=== PATIENT | male | born 1960 | race Caucasian/White ===

== ENCOUNTER 2019-04-21 10:07 | Inpatient (IN) ==
--- NOTE | 2019-04-17 13:04 | PAT Medication Instructions ---
Medication Instructions Date of Service April 17, 2019 Home Medications alfuzosin 10 mg PO QPM allopurinol 300 mg PO QAM atorvastatin 10 mg PO PM carvedilol 12.5 mg PO BID famotidine 20 mg PO HS PRN [id number] [krill oil] 1 cap PO QAM meloxicam 15 mg PO QAM phendimetrazine tartrate 35 mg PO BIDM topiramate 100 mg PO HS ASK your surgeon for instructions meloxicam 15 mg PO QAM STOP taking 2 weeks before surgery [id number] [krill oil] 1 cap PO QAM STOP taking 5 days before surgery phendimetrazine tartrate Take morning of surgery With a small sip of water, OTHERWISE NOTHING TO EAT OR DRINK AFTER MIDNIGHT: allopurinol 300 mg PO QAM carvedilol 12.5 mg PO BID Take evening before surgery alfuzosin 10 mg PO QPM atorvastatin 10 mg PO PM carvedilol 12.5 mg PO BID famotidine 20 mg PO HS PRN topiramate 100 mg PO HS Other Notes If you have any questions please call us at [phone] or [phone] or [phone] or [phone]
--- NOTE | 2019-04-17 14:04 | Anesthesiology Consultation ---
Date of Service April 17, 2019 Assessment & Plan (1) Encounter for pre-operative examination: PCP clearance 04/18/2019: "All the above medical diagnoses were evaluated and are discussed with patient. They are stable and doing as well as can be expected therefore all medical regimens are kept the same... The patient is cleared for planned Ortho surgery next week." Chart Review Chart Review: Acceptable Risk for Surgery and Patient seen in Pre Admission Testing Teaching & Discussion Instructed NPO after midnight before surgery, except medications with 15 cc of water. Medication instructions provided according to the PAT guidelines. History Surgery Operation Date: 04/21/19 13:20 Proposed Procedures p Left Total Knee Arthroplasty - Jhon Fletcher DO Height/Weight Height: 5 ft 9 in Weight: 92.3 kg Allergies Allergy/AdvReac Type Severity Reaction Status Date / Time Quinolones AdvReac Intermediate MUSCLE Verified 04/08/19 15:15 WEAKNESS/PAIN shellfish derived AdvReac Intermediate N/V Verified 04/08/19 14:43 Sulfa (Sulfonamide AdvReac Intermediate MUSCLE Verified 04/08/19 15:15 Antibiotics) PAIN/WEAKNESS Medications Home Medications Medication Instructions Recorded Confirmed Last Taken alfuzosin 10 mg PO QPM 04/08/19 04/08/19 Unknown allopurinol 300 mg PO QAM 04/08/19 04/08/19 Unknown atorvastatin 10 mg PO PM 04/08/19 04/08/19 Unknown carvedilol 12.5 mg PO BID 04/08/19 04/08/19 Unknown famotidine 20 mg PO HS PRN 04/08/19 04/08/19 Unknown [id number]-[id number]-[id number] 1 cap PO QAM 04/08/19 04/08/19 Unknown [krill oil] meloxicam 15 mg PO QAM 04/08/19 04/08/19 Unknown phendimetrazine tartrate 35 mg PO BIDM 04/08/19 04/08/19 Unknown topiramate 100 mg PO HS 04/08/19 04/08/19 Unknown Past Medical History Medical History BPH (benign prostatic hyperplasia) Diverticular disease s/p hemicolectomy 2016 Gout History of herniated intervertebral disc LUMBAR, WITH PAIN MANAGEMENT ~10 YEARS AGO. NO PROBLEMS SINCE. Hypertension Osteoarthritis Sleep apnea (MILD) CPAP Exercise / Class Metabolic Activity II 4-5 Yardwork/Stairs/Walk up hill (Pt active at home, no CP or SOB with 1 FOS, does daily) Past Family History Family History Brother FHx: lymphoma Father Family hx of colon cancer Family history of diabetes mellitus Mother FHx: stroke Past Surgical History Surgical History History of bowel resection PARTIAL. JULY 2016, FOR DIVERTICULITIS. History of colonoscopy S/P right knee arthroscopy X2 Past Anesthesia History No Hx of Anesthesia Complications and No Family Hx of Anesthesia Complications History of PONV No Hx of PONV and No Hx of Motion Sickness Social History Smoking Status: Former smoker tobacco type: cigarettes Smoking cigarettes per day: 1 PPD X 35 YEARS Do You Dip or Chew Tobacco: No Smoking End Date: ~2015 Hx Alcohol Use: Yes Alcohol type: beer alcohol intake frequency: a few times a week Hx Substance Use: No substance use type: does not use Review of Systems Pt denies any recent chest pain, shortness of breath, palpitations, cough, fever or URI. Physical Exam Vital Signs BP: 128/79 P: 57bpm SPO2: 99% RA T: 98.2 F R: 16 ENMT Mouth: no dental restorations, no chipped teeth and no loose teeth Thyromental Distance: < 3.5 Finger Breadths (3) Mallampati Class: I Neck normal visual inspection; neck extension not limited Respiratory normal respiratory effort Auscultation: lungs clear to auscultation bilaterally Cardiovascular Rate/Rhythm: regular rate and regular rhythm Heart Sounds: no murmur Vessels: no carotid bruit Extremities: no edema Testing Laboratory Results 04/17/19 14:12 04/17/19 14:12 PT 10.5 Seconds (9.0-12.0) 04/17/19 14:12 INR 1.0 (0.9-1.1) 04/17/19 14:12 APTT 27.1 Seconds (21.0-31.0) 04/17/19 14:12 Hemoglobin A1c 5.2 % (4.5-5.6) 04/17/19 14:12 Urine Color Yellow 04/17/19 Unknown Urine Appearance Clear (Clear) 04/17/19 Unknown Urine pH 5.5 (4.5-7.5) 04/17/19 Unknown Ur Specific [place] 1.011 (1.000-1.030) 04/17/19 Unknown Urine Protein Negative (Negative) 04/17/19 Unknown Urine Glucose (UA) Negative (Negative) 04/17/19 Unknown Urine Ketones Negative (Negative) 04/17/19 Unknown Urine Nitrite Negative (Negative) 04/17/19 Unknown Ur Leukocyte Esterase Negative (Negative) 04/17/19 Unknown Urine WBC (Auto) 0 /hpf (0-5) 04/17/19 Unknown Urine RBC (Auto) 5-10 /hpf (0-4) H 04/17/19 Unknown U Hyaline Cast (Auto) 0 /lpf (0-5) 04/17/19 Unknown U Epithel Cells (Auto) 0-5 /lpf (0-5) 04/17/19 Unknown Urine Bacteria (Auto) Negative (Negative) 04/17/19 Unknown Blood Type A Positive 04/17/19 14:12 Antibody Screen NEGATIVE 04/17/19 14:12 04/17/19 Unknown Urine Culture - Preliminary Urine,Clean Catch No growth - Less than 1,000 colonies/mL, Final report to follow.
--- NOTE | 2019-04-17 14:44 | XRay Report ---
XR chest Pre-admission PA/Lat HISTORY: 58 years-old Male pat preoperative exam. No acute chest complaints COMPARISON: None available TECHNIQUE: PA and lateral views of the chest FINDINGS: Cardiomediastinal and hilar silhouettes are within normal limits. No pneumothorax, pleural effusion, focal airspace consolidation or overt pulmonary edema. Remote fracture about the posterior left ninth rib. Changes of the spine are noted. IMPRESSION: No acute process. The above report was generated using voice recognition software. It may contain grammatical, syntax o r spelling errors. Electronically signed by: Gianluca Young M.D. 04/17/2019 2:43 PM
[2019-04-17 15:39] LABS: Basophils # (auto) 0.03 K/uL (0-0.2); Basophils % (auto) 0.6 %; Eosinophils # (auto) 0.17 K/uL (0-0.5); Eosinophils % (auto) 3.5 %; Hematocrit (blood only) 40.4 % (42-52); Hemoglobin 14.1 g/dL (14.0-18.0); Immature Granulocytes # (auto) 0.01 K/uL (0.00-0.02); Immature Granulocytes % (auto) 0.2 %; Lymphocytes # (auto) 1.06 K/uL (1.2-3.4); Lymphocytes % (auto) 22.1 %; Mean Corpuscular Hgb Conc 34.9 g/dL (32-36); Mean Corpuscular Volume 91.8 fL (80-100); Mean Platelet Volume 8.9 fL (7.4-10.4); Monocytes # (auto) 0.43 K/uL (0.11-0.59); Neutrophils % (auto) 64.6 %; Platelet Count 124 K/uL (130-400); RDW Coefficient of Variation 13.6 % (11.5-14.5)
[2019-04-17 15:47] LABS: Appearance Urine Clear (Clear); Bacteria Urine Automated Negative (Negative); Bilirubin Urine Negative (Negative); Blood Urine 2+ (Negative); Cast Urine Automated 0 /lpf (0-5); Color Urine Yellow; Epithelial Cell Urine Auto 0-5 /lpf (0-5); Glucose Urine UA Negative (Negative); Ketones Urine Negative (Negative); Leukocyte Esterase Urine Negative (Negative); Nitrite Urine Negative (Negative); Protein Urine Negative (Negative); Specific Gravity Urine 1.011 (1.000-1.030); Urobilinogen Urine Negative (Negative); WBC Urine Automated 0 /hpf (0-5); pH Urine 5.5 (4.5-7.5)
[2019-04-17 15:49] LABS: Albumin Level 3.9 gm/dl (3.4-5.0); BUN Creatinine Ratio 20.9 (10-20); Creatinine Clr Calc Pharmacy 111.6 ml/min; Est GFR (African American) 113.5; Potassium 4.5 mmol/L (3.5-5.1)
[2019-04-17 15:59] LABS: Partial Thromboplastin Time 27.1 Seconds (21.0-31.0); Prothrombin Time 10.5 Seconds (9.0-12.0)
[2019-04-18 05:48] LABS: Estimated Average Glucose 103 mg/dl; Hemoglobin A1C 5.2 % (4.5-5.6)
--- NOTE | 2019-04-20 19:34 | History & Physical Report ---
Date of Service April 20, 2019 Assessment & Plan (1) Degenerative joint disease of left knee: I have indicated the patient for left total knee replacement. The risks, benefits and complications of surgery were explained to the patient which include but not limited to infection, acute blood loss, DVT/PE, injury to nerves, vessels, bone, soft tissue, arthrofibrosis, chronic pain, failure of the prosthesis, knee dislocation, leg length discrepancy, need for additional surgery, cardiac and pulmonary events and . The patient wished to proceed with surgery and informed consent was obtained at this time. We will plan for ASA BID post-operatively for DVT prophylaxis. Upon discharge the patient will be discharged home with home health services. Appropriate clearances by PCP were obtained. History of Present Illness Chief Complaint: Left knee pain/djd Primary Care Provider: NO PCP The patient is a 58 year old male who presents with complaints of severe left knee pain and DJD. The patient has failed outpatient conservative treatments to this point which included NSAIDs, IA corticosteroid inj, JUAREZ inj, bracing, home exercise, walking program. The patient's pain and limited function have progressed to the point where they severely hinder their activities of daily living and they no longer tolerate exercise programs. They are requesting to proceed with total knee replacement surgery. Allergies Allergy/AdvReac Type Severity Reaction Status Date / Time Quinolones AdvReac Intermediate MUSCLE Verified 04/21/19 10:47 WEAKNESS/PAIN shellfish derived AdvReac Intermediate N/V Verified 04/21/19 10:47 Sulfa (Sulfonamide AdvReac Intermediate MUSCLE Verified 04/21/19 10:47 Antibiotics) PAIN/WEAKNESS Home Medications Home Medications Medication Instructions Recorded Confirmed Type alfuzosin 10 mg PO QPM 04/08/19 04/08/19 History allopurinol 300 mg PO QAM 04/08/19 04/08/19 History atorvastatin 10 mg PO PM 04/08/19 04/08/19 History carvedilol 12.5 mg PO BID 04/08/19 04/08/19 History famotidine 20 mg PO HS PRN 04/08/19 04/08/19 History liqpr-rdlyu-9-nrt-zbg-zaxior 1 cap PO QAM 04/08/19 04/08/19 History [krill oil] meloxicam 15 mg PO QAM 04/08/19 04/08/19 History phendimetrazine tartrate 35 mg PO BIDM 04/08/19 04/08/19 History topiramate 100 mg PO HS 04/08/19 04/08/19 History Past Med/Surg History Medical History BPH (benign prostatic hyperplasia) Diverticular disease s/p hemicolectomy 2015 Gout History of herniated intervertebral disc LUMBAR, WITH PAIN MANAGEMENT ~10 YEARS AGO. NO PROBLEMS SINCE. Hypertension Osteoarthritis Sleep apnea (MILD) CPAP Surgical History History of bowel resection PARTIAL. JULY 2016, FOR DIVERTICULITIS. History of colonoscopy S/P right knee arthroscopy X2 Family History Brother FHx: lymphoma Father Family hx of colon cancer Family history of diabetes mellitus Mother FHx: stroke Social History Preferred Language: Syrian Communication Ability: Effective Enlisted Aircrew/Aerial Observer/Gunner Required: No Beliefs That Will Affect Care: None Current Living Situation: Spouse and Family Other Information That Helps Us Care for You: No Feels Safe at Home: Yes Safety Concerns: Feels Safe At This Time Smoking Status: Former smoker Tobacco Type: cigarettes ; Cigarettes Per Day: 1 PPD X 35 YEARS ; Do You Dip or Chew Tobacco: No ; Smoking End Date: ~2015 ; Second Hand Exposure: No ; Tobacco Cessation Education Requested by Patient: No Hx Alcohol Use: Yes Alcohol type: beer Hx Substance Use: No Review of Systems Review of Systems: All systems reviewed & are unremarkable except as noted in HPI & below Constitutional: as per Subjective / HPI Physical Exam Physical Exam: LLE NVSI +EHL/FHL/TA/GS SILT grossly, +2 DP pulse, compartments soft NT, limited painful ROM, 0-120 degrees of flexion, +crepitus. Constitutional: WD/WN, vitals as above Eyes: PERRL, conjunctivae normal, anicteric sclerae ENMT: external ear and nose normal, oropharynx normal Neck: trachea midline, no thyromegaly Respiratory: normal respiratory effort, lungs clear to auscultation Cardiovascular: RRR, no murmur, no edema Gastrointestinal (Abdomen): normal bowel sounds, soft, nontender, no hepatosplenomegaly Skin: no rashes, warm and dry Neurologic: patellar DTR's 2+ bilat, sensation intact Psychiatric: A+Ox3, euthymic affect Lymphatic: no cervical or axillary lymphadenopathy Results & Data Diagnostic Findings Multiple views of the knee demonstrates severe tricompartmental DJD with complete loss of the medial and patellofemoral joint space. +osteophytes, +sclerosis, +subchondral cysts.
[~2019-04-21 10:07] MED LIST: ACETAMINOPHEN 500 MG TAB PO SCH; BUPIVACAINE 0.5 % 5 MG/1 ML PF 10ML VIAL ONE; CEFAZOLIN 2000MG 2,000 MG/15 ML SYR IV SCH; CeleBREX 200 MG CAP PO SCH; EPINEPHrine INJ 1 MG/ML AMP ONE; FAMOTIDINE 20 MG TAB PO SCH; LR 500ML BOLUS, THEN 15ML/HR IV SCH; METOCLOPRAMIDE HCL 10 MG TABLET PO SCH; ROPIVACAINE 0.5% 5 MG/ML 30 ML VIAL ONE; ROPIVACAINE 0.5% HCL/PF 150 MG, BUPIVACAINE 0.5% MPF 30 ML, EPINEPHrine 30MG/30ML (OR U... INSTIL SCH; TRANEXAMIC ACID 1,000 MG **IV Intra-op IV SCH; TRANEXAMIC ACID 1,000 MG **IV Pre-op IV SCH; dexAMETHasone 4 MG TAB PO SCH
[2019-04-21] MEDS ORDERED: LIDOCAINE HCL 2% 2 ML VIAL/AMP(20MG/ML) INFIL ONE ×2 (10:10)
[2019-04-21] MEDS ORDERED: ONDANSETRON INJ 2 MG/ML 2 ML VIAL ONE (10:10)
[2019-04-21] MEDS ORDERED: PROPOFOL IV EMULSION 10 MG/ML 20 ML VIAL IV ONE ×4 (10:10→14:11)
[2019-04-21] MEDS ORDERED: MIDAZOLAM HCL 1 MG/ML 2ML VIAL ONE (10:11)
[2019-04-21] MEDS ORDERED: fentaNYL citrate 100 MCG/2 ML VIAL ONE (10:11)
--- NOTE | 2019-04-21 10:51 | History & Physical Bridge Note ---
Date of Service April 21, 2019 History & Physical Bridge Note I have examined the patient, reviewed the History & Physical and in the interval since the performance of the History & Physical I have noted the following changes of clinical significance: no changes noted
[2019-04-21] MEDS ORDERED: ORTHO JOINT ANESTHETIC ONE (11:19)
[2019-04-21] MEDS ORDERED: BACITRACIN INJ 50,000 UNIT VIAL ONE (11:20)
[2019-04-21] MEDS ORDERED: GLYCOPYRROLATE 0.2 MG/ML VIAL ONE (12:41)
[2019-04-21] MEDS ORDERED: ePHEDrine sulfate 50 MG/ML AMP ONE (12:43)
[2019-04-21] MEDS ORDERED: ATROPINE SO4 1 MG/ML 1ML VIAL ONE (12:48)
--- NOTE | 2019-04-21 14:17 | Post Operative Brief Note ---
Immediate Post Op Note v1 Date of Surgery April 21, 2019 Pre & Post Diagnosis Operation Date: 04/21/19 13:20 Pre-Op Diagnosis: Left Knee Degenerative Joint Disease Post-Op Diagnosis: Left Knee Degenerative Joint Disease Procedure Operation Date: 04/21/19 13:20 Actual Procedures p Left Total Knee Arthroplasty(Left) - Jhon Fletcher DO Surgeon Jhon Fletcher DO Instructional Technology Director Valeriy Cotton Estimated Blood Loss 70 Findings Consistent with Post-Op Diagnosis Fluids 1400 cc LR Specimens proximal tibia and distal femur bone fragments Anesthesia Type Spinal MAC Complications none Disposition Disposition: Recovery Room Overlapping Procedure I was present for: the critical portions of procedure. I was immediately available: during the entire case. Back up surgeon: was not required during procedure.
--- NOTE | 2019-04-21 14:27 | Operative Report ---
Post Operative Report Pre & Post Diagnosis Operation Date: 04/21/19 13:20 Pre-Op Diagnosis: Left Knee Degenerative Joint Disease Post-Op Diagnosis: Left Knee Degenerative Joint Disease Procedure Operation Date: 04/21/19 13:20 Actual Procedures p Left Total Knee Arthroplasty(Left) - Jhon Fletcher DO Surgeon Jhon Fletcher DO Sanitary [place] Machine Tender Valeriy Cotton Estimated Blood Loss 70 Findings Consistent with Post-Op Diagnosis Fluids 1400 cc LR Specimens Proximal tibia and distal femur bone fragments Anesthesia Type Spinal MAC Complications none Disposition Disposition: Recovery Room Indications The patient is a 58-year-old male presents with long history of severe left knee tricompartmental DJD and failed outpatient conservative treatments including NSAIDs, bracing, injections and home walking/exercise program. The patient's symptoms have progressed to the point where it has been difficult to perform normal activities of daily living. I have indicated the patient for a left total knee arthroplasty, the risks and benefits and complications of the procedure include but are not limited to infection bleeding damage to bone, nerves, vessels, surrounding soft tissue, blood clots, loss of function, leg length discrepancy, dislocation, failure of the components, need for additional surgery and . The patient wished to proceed with surgery at this time and informed consent was obtained. Appropriate clearances were obtained. Description of Procedure COMPONENTS USED: Criselda persona knee system: Femur size 9, Tibia size F tibial articulating surface 12 CPS, Patella 31 mm Following induction of spinal anesthesia, a tourniquet was applied to the proximal aspect of the thigh and the patient's left leg was prepped and draped in the usual sterile manner. A timeout was performed, patient identified and site shirley confirmed. Appropriate pre-operative IV antibiotics were given. The limb was exsanguinated with an Esmarch bandage and tourniquet was inflated to 300 mmHg. A longitudinal midline incision was made over the anterior knee. Subcutaneous tissue was sharply dissected down to fascia. Electrocautery was used for hemostasis. Next a parapatellar arthrotomy was performed. Patella was everted and the knee was flexed. A Naranjo retractor was used to expose the synovium above on the anterior aspect of the femur and removed down to bone. Next, the anterior fat pad was removed to aid in visualization. The medial face of the tibia was cleared of soft tissue first with a Bovie and a perera elevator. This tissue was retracted posteriorly using a blunt Hohmann. Next, the extra-medullary tibial cutting guide was placed to the anterior aspect of the tibia. The tibia resection level was set taking 2mm from the defective tibial condyle. Resection depth was once again confirmed with hortensia wing. The medial and lateral collateral ligament was protected with two Hohmann retractors. The tibia guide was removed and proximal tibial bone fragment removed utilizing straight osteotome, electrocautery and Janie. Next, the distal femur intramedullary canal was accessed utilizing the step drill. The intramedullary distal femur cutting guide was placed into the canal and pinned into place. The distal femur was cut on the +0 5 degree setting. Next the cutting guide was removed and the femur was sized. Care was taken to ensure appropriate core driller helper all rotation and 3 degree holes were drilled. A size 9 4-in-1 cutting block was placed on the distal end of the femur and secured into place with two short headed screws. Two bent Hohmann retractors were placed to protect the medial and lateral collateral ligaments. The oscillating saw was used to cut anterior, posterior, anterior chamfer and posterior chamfer. The four and one cutting block was removed and bone fragments excised. Laminar unit nurse was placed laterally and the ACL and PCL were removed followed by the medial meniscus and posterior medial osteophytes. Aquamantys was utilized for any posterior medial bleeders and Orthomix injected into the posterior medial capsule. A laminar unit nurse was then placed in the medial compartment and the lateral meniscus and posterior osteophytes were removed. Aquamantys was utilized for any posterior lateral bleeders and Orthomix injected into the posterior lateral capsule. Next, drop mary and spacer block were placed with the leg in flexion and extension to assess alignment and flexion/extension gaps. Next, the proximal tibia was assessed and two bent Hohmans were placed medial and lateral to aid in visualization. The appropriate tibia size and rotation was selected and a size F tibial plate was pinned into place with appropriate rotation. Preparation of the tibia was completed utilizing the matching tibial drill and broach. I then turned my attention back to the distal femur in a trial femoral component was impacted into place. Appropriate femoral width was assessed and selected. Next the femur PS box cut guide was placed and cut made with the reciprocal saw and the PS box provisional placed. A trial size 10 PS tibia articular tray was placed and varus-valgus balance assessed in 0 degrees of extension and 30, 60 and 90 degrees of flexion. A final tibial articular surface size 12 CPS was chosen. Assess was gained to the patella and caliper utilized to measure width. The patella reamer was utilized and remaining bone removed with oscillating saw. A size 31 mm oval patella button was selected and the patella pegs drilled. Trial patella button was placed and tracking was assessed. The knee was found to be well balanced, well aligned with excellent patella tracking. The trials were removed and final components were obtained and assembled. The knee was irrigated copiously with sterile saline solution mixed with bacitracin. Access to the proximal tibia was once again obtained utilizing to the Hohmans and the proximal tibia and distal femur were dried with lap sponges. The final components were cemented into place and all excess cement was removed. A trial tibial articular surface was placed while cemented hardened. Knee stability was once again assessed and the final component inserted. A Betadine soak was performed. After 3 minutes, the hip was once more irrigated with copious sterile saline solution with bacitracin. The knee was injected with the remaining Orthomix which includes a combination of Ropivicaine 0.5% 150mg, Bupivicaine 0.5%/Epinephrine 1:200,000 30ml, Toradol 30mg, Dexamethasone 4mg, Ketamine 10mg, Clonidine 100mcg and NSS 30ml solution. The capsulotomy was closed with #1 Vicryl followed by subcutaneous closure with 2-0 Vicryl suture and a 3-0 V-lock suture. Skin closure was performed using Prineo dressing followed by Cornel, 4 x 4s and sae wrap. Tourniquet was deflated at 108 minutes. The patient tolerated the procedure well and was taken to the PACU in stable condition. Due to the complex nature of the procedure, the entire surgery was performed with the operational assistance of Valeriy Cotton PA-C. The academic support assistant, under direct supervision, was involved in the actual performance of all aspects of the surgical procedure including patient positioning, hemostasis, tissue retraction, instrument management and wound closure. I attest to the content of the Intraoperative Record and any orders documented therein. Any exceptions are noted below.
[2019-04-21] MEDS ORDERED: ePHEDrine sulfate 50 MG/ML AMP IV PRN (15:04)
[2019-04-21] MEDS ORDERED: PROMETHAZINE HCL 12.5 MG in SODIUM CHLORIDE 0.9% 50 ML IV PRN (15:04)
[2019-04-21] MEDS ORDERED: NALOXONE HCL 0.4 MG/1 ML VIAL/CARP IV PRN ×2 (15:04→16:01)
[2019-04-21] MEDS ORDERED: ATROPINE SULFATE 0.1 MG/ML 10ML SYR IV PRN (15:04)
[2019-04-21] MEDS ORDERED: FLUMAZENIL 0.1 MG/1 ML 10 ML VIAL IV PRN (15:04)
[2019-04-21] MEDS ORDERED: ONDANSETRON INJ 2 MG/ML 2 ML VIAL IV PRN ×2 (15:04→16:01)
[2019-04-21] MEDS ORDERED: HYDROmorphone INJ 1 MG/ML SYRINGE IV PRN (15:04)
--- NOTE | 2019-04-21 15:12 | XRay Report ---
TWO VIEWS LEFT KNEE CLINICAL HISTORY: Postoperative examination. FINDINGS: AP and crosstable lateral portable views of the left knee are obtained. A left knee arthrop lasty is in near anatomic alignment. There has been undersurface remodeling of the patella. No acute fracture is seen. Subcutaneous gas and soft tissue edema are expected postoperative findings. There i s atherosclerotic calcification of the popliteal artery. IMPRESSION: Expected postoperative changes status post left knee arthroplasty. No acute fracture is s een. Electronically signed by: Barrera Jon M.D. 04/21/2019 3:11 PM
--- NOTE | 2019-04-21 15:25 | Anesthesiology Progress Note ---
Date of Service April 21, 2019 Anesthesia Post Procedure Vital Signs Vital Signs: Temp Pulse Pulse Resp BP Pulse Ox 04/21/19 15:15 36.4 C L 51 L 16 134/67 96 04/21/19 15:05 51 L 16 135/71 96 04/21/19 14:55 52 L 16 116/70 100 04/21/19 14:49 36.5 C 54 L 16 120/73 100 04/21/19 10:59 37.2 C 54 L 18 140/76 97 Transfer of Care Handoff Completed per policy Notes Mental Status: alert / awake / arousable Patient Amnestic to Procedure: Yes Nausea / Vomiting: adequately controlled Pain: adequately controlled Airway Patency, RR, SpO2: stable & adequate BP & HR: stable & adequate Hydration State: stable & adequate Neuraxial Anesthesia: was administered and sensory block is resolving Anesthetic Complications: no major complications apparent
[2019-04-21] MEDS ORDERED: MAGNESIUM HYDROXIDE SUSP 30 ML UDC PO PRN (16:01)
[2019-04-21] MEDS ORDERED: BISACODYL 10 MG SUPP PR PRN (16:01)
[2019-04-21] MEDS ORDERED: METOCLOPRAMIDE HCL INJ 5 MG/ML 2 ML VIAL IV PRN (16:01)
[2019-04-21] MEDS ORDERED: HYDROmorphone INJ 0.5 MG/0.5 ML SYR IV PRN (16:01)
[2019-04-21] MEDS ORDERED: FAMOTIDINE 20 MG TAB PO PRN (16:01)
--- NOTE | 2019-04-21 17:04 | Orthopedic Progress Note ---
Date of Service April 21, 2019 Assessment & Plan (1) Degenerative joint disease of left knee: s/p L TKA -ancef x 24 -DVT ppx: SCDs, TEDs, ASA BID -WBAT LLE -PT/OT -PO XR demonstrates a well aligned well fixed orthopedic prothesis without fracture/dislocation -am labs -DC planning Subjective Post Operative Progress Note Patient seen in PACU, comfortable, denies complaints, pain well controlled, no acute issues. Still feeling effects of spinal anesthesia. Review of Systems Review of Systems: All systems reviewed & are unremarkable except as noted in HPI & below Constitutional: as per Subjective / HPI Physical Exam Physical Exam: LLE PE limited secondary to spinal anesthesia, +2 DP pulse, compartments soft NT, dressing CDI. Constitutional: WD/WN, vitals as above Results & Data Vital Signs (Past 12 Hours) Vital Signs Temp Pulse Pulse Pulse Resp BP Pulse Ox 04/21/19 16:47 36.3 C L 51 L 16 139/76 100 04/21/19 16:19 36.3 C L 49 L 17 127/78 97 04/21/19 15:35 36.4 C L 51 L 16 128/85 96 04/21/19 15:25 36.4 C L 51 L 16 132/70 95 04/21/19 15:15 36.4 C L 51 L 16 134/67 96 04/21/19 15:05 51 L 16 135/71 96 04/21/19 14:55 52 L 16 116/70 100 04/21/19 14:49 36.5 C 54 L 16 120/73 100 04/21/19 10:59 37.2 C 54 L 18 140/76 97
[2019-04-21] MEDS: SODIUM CHLORIDE 0.9% 1000ML 1,000 ML IV SCH (17:38)
[2019-04-21] MEDS: KETOROLAC TROMETHAMINE 15 MG/ML VIAL IV SCH ×2 (17:39→22:22)
[2019-04-21] MEDS: OXYCODONE HCL IR 5 MG TAB (IMMEDIATE RELEASE) PO PRN (18:53)
[2019-04-21] MEDS: CARVEDILOL 12.5 MG TAB PO SCH (20:11)
[2019-04-21] MEDS: DOCUSATE SODIUM 100 MG CAP PO SCH (20:11)
[2019-04-21] MEDS: ASPIRIN 325 MG ECTAB PO SCH (20:11)
[2019-04-21] MEDS: CEFAZOLIN 2000MG 2,000 MG/15 ML SYR IV SCH (20:47)
[2019-04-21] MEDS ORDERED: ALFUZOSIN HCL 10 MG TAB PO SCH (21:00)
[2019-04-21] MEDS ORDERED: ATORVASTATIN 10 MG TAB PO SCH (21:00)
[2019-04-21] MEDS ORDERED: TOPIRAMATE 50 MG TAB PO SCH (21:00)
[2019-04-21] MEDS ORDERED: CARVEDILOL 25 MG TAB PO SCH (21:00)
[2019-04-21] MEDS ORDERED: SENNA 8.6 MG TAB PO SCH (21:00)
[2019-04-21] MEDS: ACETAMINOPHEN 500 MG TAB PO SCH (21:08)
[2019-04-22] MEDS: OXYCODONE HCL IR 5 MG TAB (IMMEDIATE RELEASE) PO PRN ×3 (00:11→13:08)
[2019-04-22] MEDS: SODIUM CHLORIDE 0.9% 1000ML 1,000 ML IV SCH (02:24)
[2019-04-22] MEDS: CEFAZOLIN 2000MG 2,000 MG/15 ML SYR IV SCH (05:13)
[2019-04-22] MEDS: ACETAMINOPHEN 500 MG TAB PO SCH ×2 (05:14→13:08)
[2019-04-22] MEDS: KETOROLAC TROMETHAMINE 15 MG/ML VIAL IV SCH ×2 (05:14→10:00)
[2019-04-22 06:25] LABS: Hematocrit (blood only) 36.1 % (42-52); Hemoglobin 12.4 g/dL (14.0-18.0); Mean Corpuscular Hgb Conc 34.3 g/dL (32-36); Mean Corpuscular Volume 91.9 fL (80-100); Mean Platelet Volume 8.5 fL (7.4-10.4); Platelet Count 119 K/uL (130-400); RDW Coefficient of Variation 13.7 % (11.5-14.5); RDW Standard Deviation 45.9 fL (36.4-46.3); Red Blood Count 3.93 M/uL (4.7-6.1); White Blood Count 10.71 K/uL (4.8-10.8)
[2019-04-22 06:53] LABS: BUN Creatinine Ratio 19.2 (10-20); Calcium 8.5 mg/dl (8.5-10.1); Creatinine Clr Calc Pharmacy 93.2 ml/min; Est GFR (African American) 99.3; Est GFR (Non-African American) 85.7; Potassium 4.1 mmol/L (3.5-5.1)
--- NOTE | 2019-04-22 07:55 | Orthopedic Progress Note ---
Date of Service April 22, 2019 Assessment & Plan (1) Degenerative joint disease of left knee: s/p L TKA POD#1 -ancef x 24 -DVT ppx: SCDs, TEDs, ASA BID -WBAT LLE -PT/OT -PO XR demonstrates a well aligned well fixed orthopedic prothesis without fracture/dislocation -am labs - hgb 12.4 -DC planning home with HH Subjective Post Operative Progress Note Patient seen sitting up in bed, comfortable, denies complaints, pain well controlled, no acute issues. Review of Systems Review of Systems: All systems reviewed & are unremarkable except as noted in HPI & below Constitutional: as per Subjective / HPI Physical Exam Physical Exam: LLE NVSI +EHL/FHL/TA/GS SILT grossly, +2 DP pulse, compartments soft NT, dressing cdi. Constitutional: WD/WN, vitals as above Results & Data Vital Signs (Past 12 Hours) Vital Signs Temp Pulse Resp BP Pulse Ox 04/22/19 07:02 36.5 C 56 L 16 120/63 98 04/22/19 03:13 36.8 C 61 16 101/46 L 98 04/21/19 23:18 36.5 C 54 L 16 111/53 L 96 04/21/19 20:05 75 139/82
[2019-04-22] MEDS: ASPIRIN 325 MG ECTAB PO SCH (08:35)
[2019-04-22] MEDS: DOCUSATE SODIUM 100 MG CAP PO SCH (08:35)
[2019-04-22] MEDS: CARVEDILOL 12.5 MG TAB PO SCH (08:35)
[2019-04-22] MEDS ORDERED: MULTIVITAMIN TAB PO SCH (09:00)
[2019-04-22] MEDS ORDERED: ALLOPURINOL 300 MG TAB PO SCH (09:00)
[2019-04-22] MEDS ORDERED: Nursing to Pharmacy Communication ONE (09:57)
[2019-04-22] MEDS ORDERED: FAMOTIDINE 20 MG TAB PO SCH (10:30)
[2019-04-22] MEDS ORDERED: ALBUTEROL 0.5% NEB SOLN 2.5 MG/0.5 ML VIAL NEB ONE (14:41)
[2019-04-22 15:21] VITALS: BP 119/64; TEMP 97.5; O2SAT 94
[2019-04-22 15:52] VITALS: PULSE 54
[2019-04-22] MEDS ORDERED: CeleBREX 200 MG CAP PO SCH (21:00)
--- NOTE | 2019-04-22 21:43 | Discharge Summary ---
Date of Service April 22, 2019 Admission HPI Per Admitting Provider The patient is a 58 year old male who presents with complaints of severe left knee pain and DJD. The patient has failed outpatient conservative treatments to this point which included NSAIDs, IA corticosteroid inj, JUAREZ inj, bracing, home exercise, walking program. The patient's pain and limited function have progressed to the point where they severely hinder their activities of daily living and they no longer tolerate exercise programs. They are requesting to proceed with total knee replacement surgery. Principal Diagnosis Left total knee replacement Discharge Exam LLE NVSI +EHL/FHL/TA/GS SILT grossly, +2 DP pulse, compartments soft NT, dressing cdi. Constitutional WD/WN, vitals as above Discharge Data Allergies Allergy/AdvReac Type Severity Reaction Status Date / Time Quinolones AdvReac Intermediate MUSCLE Verified 04/21/19 10:47 WEAKNESS/PAIN shellfish derived AdvReac Intermediate N/V Verified 04/21/19 10:47 Sulfa (Sulfonamide AdvReac Intermediate MUSCLE Verified 04/21/19 10:47 Antibiotics) PAIN/WEAKNESS Consultations 04/21/19 16:01 Consult Case Management - Discharge Planning Routine Procedures Performed Operation Date: 04/21/19 13:20 Actual Procedures p Left Total Knee Arthroplasty(Left) - Jhon Fletcher DO Ordered Studies 04/21/19 05:00 US - OR guided needle placemen Routine Hospital Course (1) Degenerative joint disease of left knee: The patient is a 58 -year-old male who presents with long standing history of severe left knee DJD and failed outpatient conservative treatments including NSAIDs, bracing, injections and home walking/exercise program. The patient's symptoms have progressed to the point where it has been difficult to perform even normal activities of daily living. I indicated the patient for a left total knee arthroplasty, the risks, benefits and complications of the procedure include but not limited to infection, bleeding, damage to bone, nerves, vessels, surrounding soft tissue, may develop blood clots, loss of function, leg length discrepancy, dislocation, failure of the components, loosening of the components, the need for additional surgery and . The patient wished to proceed with surgery at this time and informed consent was obtained. Hospital Course: On 04/21/19 the patient was taken to the operating room, adequate anesthesia administered and underwent a left total knee arthroplasty. The patient tolerated the procedure well and was taken to the PACU in stable condition. Post-operatively the patient was started on a DVT ppx medication and given appropriate IV antibiotics. Consults were placed to physical therapy, occupational therapy and case management. On POD#1, the patient did well overnight and their pain was well controlled. Labs were drawn and the Hgb was 12.4. The patient progressed well with PT. Dressings were changed at this time and the incision was clean, dry and intact. The patients hospital stay was relatively uneventful and they were deemed stable by the orthopedic team and consultants to be discharged home with HH on 04/22/19. Discharge Instructions: Upon discharge the patient may weight bear as tolerates through their operative extremity. They were instructed to keep the incision clean and dry at all times. The patient may shower but should not submerge the incision, avoid bathing, pools and hot tubes. The patient was given a script for pain medication and should take as instructed. The patient was given a script for DVT ppx Aspirin 325mg BID and should take as directed. The patient was instructed to not drive or travel for long distances until cleared to do so. If the patient develops any symptoms of fevers, chills, nausea, vomiting, increased redness, swelling, pain or drainage from the surgical site, they should notify the office and/or proceed to the nearest emergency room. The patient should follow up in 10-14 days after surgery for their routine post-operative follow-up appointment and should call the office to confirm the date and time. s/p L TKA POD#1 -ancef x 24 -DVT ppx: SCDs, TEDs, ASA BID -WBAT LLE -PT/OT -PO XR demonstrates a well aligned well fixed orthopedic prothesis without fracture/dislocation -am labs - hgb 12.4 -DC planning home with HH Total Time Total Time Spent Total Time Spent (In Minutes): 30 minutes Total Time Includes: Examination of the Patient, Discharge Planning, Medication Reconciliation and Communication With Other Providers Discharge Plan Discharge Items Patient Disposition: Home - Home Health Services Reason For Visit: Unilateral Primary Osteoarthritis, Left Knee Discharge Diagnosis: Left total knee replacement Condition: Good Discharge Goals: Decrease discomfort, Improve function, Increase independence and Therapeutic intervention Activity: Per 'Additional Instructions' section Lifting: Wait until after follow-up appointment Bathing Comment: No bathing, pools or hot tubs Sexual Activity: Wait until after follow-up appointment Exercise/Sports: Wait until after follow-up appointment Driving/Machine Use Comment: No driving till cleared by your surgeon Weightbearing: Left weightbearing Non-emergency contact: Primary Care Provider and Surgeon Call non-emergency contact if: you have any medication questions, your symptoms worsen, your pain is not controlled, your pain is worsening, your pain is unusual for you, your pain is concerning for you, you have a fever, your temperature is above 101, your wound has increased redness, your wound has increased drainage and your wound pain has increased Follow-up/Referrals: Yogesh Parrish [Primary Care Provider] - Diet: Regular Addtl Provider Instructions: ACTIVITY RECOMMENDATIONS: SELF CARE INSTRUCTIONS AFTER TOTAL KNEE REPLACEMENT A. You may need to continue a physical therapy program after discharge from the hospital. There are several options available to you. Your doctor will assist you in selecting the best one for you. 1. An out-patient facility 2 to 3 times a week for therapy or home therapy. 2. Continue working on all exercises taught to you in the hospital. Your goals should be to increase bending of your knee to 90 degrees and beyond and to fully straighten your knee. B. You may progress at your own pace from walking with a walker or crutches to a cane; then to no assistive devices. C. Make walking a part of your daily routine. Be up as much as comfortable with rest periods throughout the day. Rest with leg elevation is very important. Use the ice wrap frequently for the first 3-4 weeks. D. There are no restrictions on activities. You may ride in a car, shop, participate in shipping support clerk and all social activities. E. Wear the long elastic stockings (DAVID hose) 20 hours a day for 2 weeks after surgery. They can be removed several times a day for laundering and for a bath. F. You may shower, no tub baths until cleared by your doctor. SPECIAL CARE INSTRUCTIONS: VERY IMPORTANT TO READ AND REVIEW A. There are a few signs you need to watch for after you are home. Call [facility] if you notice any of the followin. Increased severe knee pain. Some pain is expected especially when you exercise. 2. Increased swelling in your leg or knee; pain or swelling of the calf muscle in either lower leg. 3. Any fluid drainage from the incision. 4. Shortness of breath or chest pain. B. Please call [facility] at if you have any concerns or questions about your operation or recovery. The doctor or his nurse will return your call promptly. C. You must take antibiotics before dental work, bladder, bowel or other surgery. Your doctor will provide you with a permanent care to carry describing this precaution. IMPORTANT: * REMEMBER TO TAKE ASPIRIN, 325 MG, TWICE DAILY FOR 4 WEEKS UNLESS OTHERWISE DIRECTED. THIS IS YOUR BLOOD THINNER. * HIGH RISK PATIENTS MAY BE PRESCRIBED A STRONGER BLOOD THINNER. THIS WILL BE PROVIDED AT DISCHARGE. * CALL IF INCREASED PAIN, REDNESS, DRAINAGE OR FEVER GREATER THAT 101. * WEAR DAVID HOSE 20 HOURS PER DAY FOR 2 WEEKS. *DERMABOND Prineo- This is a mesh tape dressing that is covered with glue. It should remain in place until the incision is properly healed, usually 10-14 days. This dressing is designed to naturally slough off. You may trim the excess mesh tape as it peels off. Incision may be briefly wet in a shower. Dry immediately by blotting with a clean, dry towel. Do not bath or swim until instructed by your doctor. Do not scratch, rub, or pick at the dressing. Do not apply any topical ointments or lotions until dressing is completely removed and/or instructed by your doctor. There may be a small piece of suture material at one end of your incision. Do not pull or trim this. If it is bothersome or catching on clothing, you may cover it with a band-aid. IF INCISION IS LEAKING THROUGH DRESSING, CALL THE OFFICE . FOLLOW UP VISIT: If appointment is not already scheduled: Please call [facility] to make a follow-up appointment for 2 weeks after your surgery at . Prescriptions: New acetaminophen [Tylenol Extra Strength] 500 mg Tablet 1,000 mg PO Q8 PRN (Reason: fever or pain) Qty: 90 RF: 0 celecoxib [Celebrex] 200 mg Capsule 200 mg PO BID PRN (Reason: pain) Qty: 28 RF: 0 aspirin 325 mg Tablet,Delayed Release (Dr/Ec) 325 mg PO BID Qty: 56 RF: 0 oxycodone 5 mg Tablet 5 mg PO Q6H MDD 6 tabs PRN (Reason: pain) Qty: 30 RF: 0 sennosides [Senokot] 8.6 mg Tablet 17.2 mg PO HS PRN (Reason: constipation) Qty: 28 RF: 0 Continued carvedilol 25 mg Tablet 12.5 mg PO BID RF: 0 atorvastatin 10 mg Tablet 10 mg PO PM RF: 0 phendimetrazine tartrate 35 mg Tablet 35 mg PO BIDM RF: 0 famotidine 20 mg Tablet 20 mg PO HS PRN (Reason: Heartburn) RF: 0 allopurinol 300 mg Tablet 300 mg PO QAM RF: 0 alfuzosin 10 mg Tablet Extended Release 24 Hr 10 mg PO QPM RF: 0 topiramate 50 mg Tablet 100 mg PO HS RF: 0 [id number] [krill oil] [id number] mg Capsule 1 cap PO QAM RF: 0 Discontinued meloxicam 15 mg Tablet 15 mg PO QAM RF: 0 Stand-Alone Forms: [facility]/Other Patient Handouts: Pain Management, Replacement Knee Discharge Orders: Discharge Order (Routine); Ordered 04/22/19 Ordered By: Santos Campa Admission Data Admit Date/Time: 04/21/19 14:53 Attending Provider: Jhon Fletcher Admit Provider: Jhon Fletcher Primary Care Provider: Yogesh Parirsh Service: Surgical Services Other Interventions: Discharge Summary Assessment (RN) Last Done: 04/22/19 15:51 Pending Studies at Discharge: No DC Date/Time DO NOT enter until pt leaves facility: 04/22/19 16:31
== END 2019-04-22 16:31 | disposition home health service (06) | DRG 470 ==
LOC: ASU 10:07 → 3E 14:53

== ENCOUNTER 2020-04-06 08:32 | Inpatient (IN) ==
--- NOTE | 2020-03-09 12:51 | PAT Medication Instructions ---
Medication Instructions Date of Service March 09, 2020 Home Medications alfuzosin 10 mg PO QPM allopurinol 150 mg PO QAM atorvastatin 10 mg PO PM carvedilol 12.5 mg PO BID famotidine 20 mg PO HS PRN [id number] [krill oil] 1 cap PO QAM phendimetrazine tartrate 35 mg PO BIDM topiramate 100 mg PO HS folic acid 1 mg PO QPM meloxicam 15 mg PO QAM methotrexate sodium 2.5 mg PO UD prednisone 1 mg PO UD prednisone 5 mg PO UD ASK your surgeon for instructions meloxicam 15 mg PO QAM ASK your prescriber and surgeon methotrexate sodium 2.5 mg PO UD STOP taking 2 weeks before surgery [id number] [krill oil] 1 cap PO QAM STOP FIVE DAYS PRIOR TO SURGERY: phendimetrazine tartrate 35 mg PO BIDM Take morning of surgery With a small sip of water, OTHERWISE NOTHING TO EAT OR DRINK AFTER MIDNIGHT: allopurinol 150 mg PO QAM carvedilol 12.5 mg PO BID prednisone Take evening before surgery alfuzosin 10 mg PO QPM atorvastatin 10 mg PO PM carvedilol 12.5 mg PO BID famotidine 20 mg PO HS PRN (if needed) topiramate 100 mg PO HS folic acid 1 mg PO QPM Other Notes If you have any questions please call us at [phone] or [phone] or [phone] or [phone]
--- NOTE | 2020-03-10 14:28 | Anesthesiology Consultation ---
Date of Service March 10, 2020 Assessment & Plan (1) Encounter for pre-operative examination: Chart Review Chart Review: Pending: Refer to Additional Notes / Consult section (surgeon ordered PCP clearance ) and Patient seen in Pre Admission Testing Awaiting surgeon ordered PCP clearance 03/17/20 Per PAT appt 03/10/20, pt resides in [facility]. Traveled to [facility] for ortho appt. Wears mask in public. Educated patient to follow up with surgeon's office regarding Covid testing. Educated on importance of self quarantining, social distancing and wearing mask in public both for herself and household contacts. Teaching & Discussion Pre-Anesthesia Teaching/Discussion Notes: Instructed NPO after midnight before surgery,except medications with 15 cc of water. Medication instructions provide d according to the PAT guidelines. History Surgery Operation Date: 04/06/20 12:50 Proposed Procedures p Right Total Knee Arthroplasty - Jhon Fletcher DO Height/Weight Height: 5 ft 9 in Weight: 107.5 kg Allergies Allergy/AdvReac Type Severity Reaction Status Date / Time Quinolones AdvReac Intermediate MUSCLE Verified 03/08/20 15:21 WEAKNESS/PAIN shellfish derived AdvReac Intermediate N/V Verified 03/08/20 15:21 Sulfa (Sulfonamide AdvReac Intermediate MUSCLE Verified 03/08/20 15:21 Antibiotics) PAIN/WEAKNESS Medications Home Medications Medication Instructions Recorded Confirmed Last Taken alfuzosin 10 mg PO QPM 04/08/19 03/08/20 04/20/19 17:00 allopurinol 150 mg PO QAM 04/08/19 03/08/20 04/21/19 06:45 atorvastatin 10 mg PO PM 04/08/19 03/08/20 04/20/19 17:00 carvedilol 12.5 mg PO BID 04/08/19 03/08/20 04/21/19 06:45 famotidine 20 mg PO HS PRN 04/08/19 03/08/20 Unknown [id number] 1 cap PO QAM 04/08/19 03/08/20 Unknown [krill oil] phendimetrazine tartrate 35 mg PO BIDM 04/08/19 03/08/20 04/16/19 17:00 topiramate 100 mg PO HS 04/08/19 03/08/20 04/16/19 21:00 folic acid 1 mg PO QPM 03/08/20 03/08/20 Unknown meloxicam 15 mg PO QAM 03/08/20 03/08/20 Unknown methotrexate sodium 2.5 mg PO UD 03/08/20 03/08/20 Unknown prednisone 1 mg PO UD 03/08/20 03/08/20 Unknown prednisone 5 mg PO UD 03/08/20 03/08/20 Unknown Past Medical History Medical History BPH (benign prostatic hyperplasia) Diverticular disease s/p hemicolectomy 2016 Gout No recent flares History of herniated intervertebral disc LUMBAR, WITH PAIN MANAGEMENT ~10 YEARS AGO. NO PROBLEMS SINCE. Hypertension Osteoarthritis Rheumatoid arthritis Dr. Rainey Sleep apnea (MILD) CPAP Exercise / Class Metabolic Activity II 4-5 Yardwork/Stairs/Walk up hill (one fight of stairs-no chest pain or SOB) Past Family History Family History Brother FHx: lymphoma Father Family hx of colon cancer Family history of diabetes mellitus Mother FHx: stroke Past Surgical History Surgical History History of bowel resection PARTIAL. JULY 2016, FOR DIVERTICULITIS. History of colonoscopy History of tooth extraction History of total knee replacement LEFT S/P right knee arthroscopy X2 Past Anesthesia History No Hx of Anesthesia Complications and No Family Hx of Anesthesia Complications History of PONV No Hx of PONV and No Hx of Motion Sickness Social History Smoking Status: Former smoker tobacco type: cigarettes Do You Dip or Chew Tobacco: No Smoking End Date: 6 YEARS AGO Hx Alcohol Use: Yes Alcohol type: beer alcohol intake frequency: a few times a month Hx Substance Use: No substance use type: does not use Review of Systems Occ reflux- takes meds PRN- controlled Patient denies chest pain, shortness of breath, dyspnea on exertion, cough, wheezing, palpitations. No hx of seizures, stroke, NM. No hx of blood clots or blood transfusions Physical Exam Vital Signs VITALS BP 117/76 P 63 TEMP 98.6 SP02 97% RESP 16 Constitutional no acute distress ENMT Mouth: no TMJ clicking Thyromental Distance: > or= 3.5 Finger Breadths (3.5) Mallampati Class: II Missing molars Neck + short neck and + thick neck; neck extension not limited Respiratory normal respiratory effort; no respiratory distress Auscultation: lungs clear to auscultation bilaterally; no wheezes Cardiovascular Rate/Rhythm: regular rate and regular rhythm Heart Sounds: no murmur Vessels: no carotid bruit Musculoskeletal Spine: no pain with cervical ROM Neurologic moves all extremities Psychiatric Orientation: alert Testing Laboratory Results 03/10/20 14:19 03/10/20 14:19 PT 10.5 Seconds (9.0-12.0) 03/10/20 14:19 INR 1.0 (0.9-1.1) 03/10/20 14:19 APTT 27.3 Seconds (21.0-31.0) 03/10/20 14:19 Hemoglobin A1c 5.2 % (4.5-5.6) 03/10/20 14:19 Urine Color Yellow 03/10/20 14:19 Urine Appearance Clear (Clear) 03/10/20 14:19 Urine pH >= 9.0 (4.5-7.5) H 03/10/20 14:19 Ur Specific Hyndman 1.015 (1.000-1.030) 03/10/20 14:19 Urine Protein Negative (Negative) 03/10/20 14:19 Urine Glucose (UA) Negative (Negative) 03/10/20 14:19 Urine Ketones Negative (Negative) 03/10/20 14:19 Urine Nitrite Negative (Negative) 03/10/20 14:19 Ur Leukocyte Esterase Negative (Negative) 03/10/20 14:19 Urine WBC (Auto) 0 /hpf (0-5) 03/10/20 14:19 Urine RBC (Auto) 10-30 /hpf (0-4) H 03/10/20 14:19 U Hyaline Cast (Auto) 0 /lpf (0-5) 03/10/20 14:19 U Epithel Cells (Auto) 0-5 /lpf (0-5) 03/10/20 14:19 Urine Bacteria (Auto) Negative (Negative) 03/10/20 14:19 Blood Type A Positive 03/10/20 14:19 Antibody Screen NEGATIVE 03/10/20 14:19 Electrocardiogram Date: 04/17/19 Findings: + SB @ (55) Chest X-Ray Date: 04/17/19 Findings: + NAD Cervical Spine Date: 03/10/20 The cervical spine is visualized from C1 through the superior endplate of T1. There is no fracture. No evidence for positional subluxation with the patient in extension as well as flexion and neutral. Degenerative disc change most prominent from C3 through C5. Prevertebral soft tissues and the atlantodens interval are intact.
[2020-03-10 14:40] LABS: Basophils # (auto) 0.01 K/uL (0-0.2); Basophils % (auto) 0.1 %; Eosinophils # (auto) 0.04 K/uL (0-0.5); Eosinophils % (auto) 0.5 %; Hematocrit (blood only) 44.3 % (42-52); Hemoglobin 14.9 g/dL (14.0-18.0); Immature Granulocytes # (auto) 0.02 K/uL (0.00-0.02); Immature Granulocytes % (auto) 0.3 %; Lymphocytes # (auto) 0.68 K/uL (1.2-3.4); Lymphocytes % (auto) 8.6 %; Mean Corpuscular Hemoglobin 32.9 pg (25-34); Mean Corpuscular Hgb Conc 33.6 g/dL (32-36); Mean Corpuscular Volume 97.8 fL (80-100); Mean Platelet Volume 8.8 fL (7.4-10.4); Monocytes % (auto) 5.1 %; Neutrophils # (auto) 6.75 K/uL (1.4-6.5); Neutrophils % (auto) 85.4 %; Platelet Count 167 K/uL (130-400); RDW Coefficient of Variation 14.3 % (11.5-14.5); RDW Standard Deviation 51.2 fL (36.4-46.3); Red Blood Count 4.53 M/uL (4.7-6.1)
[2020-03-10 14:44] LABS: Estimated Average Glucose 103 mg/dl; Hemoglobin A1C 5.2 % (4.5-5.6)
[2020-03-10 14:57] LABS: Appearance Urine Clear (Clear); Bacteria Urine Automated Negative (Negative); Bilirubin Urine Negative (Negative); Blood Urine 2+ (Negative); Cast Urine Automated 0 /lpf (0-5); Color Urine Yellow; Epithelial Cell Urine Auto 0-5 /lpf (0-5); Glucose Urine UA Negative (Negative); Ketones Urine Negative (Negative); Leukocyte Esterase Urine Negative (Negative); Nitrite Urine Negative (Negative); Partial Thromboplastin Time 27.3 Seconds (21.0-31.0); Protein Urine Negative (Negative); Prothrombin Time 10.5 Seconds (9.0-12.0); Specific Gravity Urine 1.015 (1.000-1.030); Urobilinogen Urine Negative (Negative); WBC Urine Automated 0 /hpf (0-5); pH Urine >= 9.0 (4.5-7.5)
--- NOTE | 2020-03-10 15:15 | XRay Report ---
XR cervical spine 2 or 3V HISTORY: Preoperative preop- RA- lateral view- flex, ext and neutral pos COMPARISON: None. FINDINGS: The cervical spine is visualized from C1 through the superior endplate of T1. There is no f racture. No evidence for positional subluxation with the patient in extension as well as flexion and neutral. Degenerative disc change most prominent from C3 through C5. Prevertebral soft tissues and t he atlantodens interval are intact. IMPRESSION: No fracture or subluxation within the cervical spine. Moderate degenerative disc change. No evidence for positional subluxation. ACT 112: Negative or not required by law. The above report was generated using voice recognition software. It may contain grammatical, syntax or spelling errors. Electronically signed by: Santos Lopez M.D. 03/10/2020 3:13 PM
[2020-03-10 16:14] LABS: Albumin Level 3.8 gm/dl (3.4-5.0); BUN Creatinine Ratio 17.5 (10-20); Calcium 9.8 mg/dl (8.5-10.1); Creatinine Clr Calc Pharmacy 99.1 ml/min; Est GFR (African American) 98.6; Est GFR (Non-African American) 85.1; Potassium 4.7 mmol/L (3.5-5.1)
--- NOTE | 2020-04-04 10:46 | History & Physical Report ---
Date of Service April 06, 2020 Assessment & Plan (1) Degenerative joint disease of knee, right: I have indicated the patient for right total knee replacement. The risks, benefits and complications of surgery were explained to the patient which include but not limited to infection, acute blood loss, DVT/PE, injury to nerves, vessels, bone, soft tissue, arthrofibrosis, chronic pain, failure of the prosthesis, knee dislocation, leg length discrepancy, need for additional surgery, cardiac and pulmonary events and . The patient wished to proceed with surgery and informed consent was obtained at this time. We will plan for 81mg ASA BID post-operatively for DVT prophylaxis. Upon discharge the patient will be discharged home with home health services. Appropriate clearances by PCP, cardio, rheum recs were obtained. History of Present Illness Chief Complaint: Right knee pain/djd Primary Care Provider: Yogesh Parrish The patient is a 59 year old male who presents with complaints of severe left knee pain and DJD. The patient has failed outpatient conservative treatments to this point which included NSAIDs, IA corticosteroid injections, PT and a home exercise/walking program. The patient's pain and limited function have progressed to the point where they severely hinder their activities of daily living and they no longer tolerate exercise programs. They are requesting to proceed with total knee replacement surgery. Allergies Allergy/AdvReac Type Severity Reaction Status Date / Time Quinolones AdvReac Intermediate MUSCLE Verified 04/06/20 09:10 WEAKNESS/PAIN shellfish derived AdvReac Intermediate N/V Verified 04/06/20 09:10 Sulfa (Sulfonamide AdvReac Intermediate MUSCLE Verified 04/06/20 09:10 Antibiotics) PAIN/WEAKNESS Home Medications Home Medications Medication Instructions Recorded Confirmed Type alfuzosin 10 mg PO QPM 04/08/19 04/06/20 History allopurinol 150 mg PO QAM 04/08/19 04/06/20 History atorvastatin 10 mg PO PM 04/08/19 04/06/20 History carvedilol 12.5 mg PO BID 04/08/19 04/06/20 History famotidine 20 mg PO HS PRN 04/08/19 04/06/20 History [id number] 1 cap PO QAM 04/08/19 04/06/20 History [krill oil] phendimetrazine tartrate 35 mg PO BIDM 04/08/19 04/06/20 History topiramate 100 mg PO HS 04/08/19 04/06/20 History folic acid 1 mg PO QPM 03/08/20 04/06/20 History meloxicam 15 mg PO QAM 03/08/20 04/06/20 History methotrexate sodium 2.5 mg PO UD 03/08/20 04/06/20 History prednisone 25 mg PO UD 03/08/20 04/06/20 History Past Med/Surg History Medical History BPH (benign prostatic hyperplasia) Diverticular disease s/p hemicolectomy 2015 Gout No recent flares History of herniated intervertebral disc LUMBAR, WITH PAIN MANAGEMENT ~10 YEARS AGO. NO PROBLEMS SINCE. Hypertension Osteoarthritis Rheumatoid arthritis Dr. Rainey Sleep apnea (MILD) CPAP Surgical History History of bowel resection PARTIAL. JULY 2016, FOR DIVERTICULITIS. History of colonoscopy History of tooth extraction History of total knee replacement LEFT S/P right knee arthroscopy X2 Family History Brother FHx: lymphoma Father Family hx of colon cancer Family history of diabetes mellitus Mother FHx: stroke Social History Smoking Status: Former smoker Smoking End Date: 6 YEARS AGO; Second Hand Exposure: Yes; Do You Dip or Chew Tobacco: No; Tobacco Cessation Education Requested by Patient: No Hx Alcohol Use: Yes Alcohol type: beer Hx Substance Use: No Preferred Language: Maltese Communication Ability: Effective Dry Kiln Burner Required: No Beliefs That Will Affect Care: None marital status: Current Living Situation: Family Feels Safe at Home: Yes Safety Concerns: Feels Safe At This Time Review of Systems Review of Systems: All systems reviewed & are unremarkable except as noted in HPI & below Constitutional: as per Subjective / HPI Physical Exam Physical Exam: LLE NVSI +EHL/FHL/TA/GS SILT grossly, +2 DP pulse, compartments soft NT, limited painful ROM, 0-125 degrees of flexion, +crepitus. Constitutional: WD/WN, vitals as above Eyes: PERRL, conjunctivae normal, anicteric sclerae ENMT: external ear and nose normal, oropharynx normal Neck: trachea midline, no thyromegaly Respiratory: normal respiratory effort, lungs clear to auscultation Cardiovascular: RRR, no murmur, no edema Gastrointestinal (Abdomen): normal bowel sounds, soft, nontender, no hepatosplenomegaly Musculoskeletal: no cyanosis or clubbing, extremities motor strength 5/5 Skin: no rashes, warm and dry Neurologic: patellar DTR's 2+ bilat, sensation intact Psychiatric: A+Ox3, euthymic affect Lymphatic: no cervical or axillary lymphadenopathy Results & Data Results & Data ([facility]) Diagnostic Findings Multiple views of the knee demonstrates severe tricompartmental DJD with complete loss of the medial joint space. +osteophytes, +sclerosis, +subchondral cysts.
[~2020-04-06 08:32] MED LIST changes: -EPINEPHrine INJ 1 MG/ML AMP ONE; +GABAPENTIN 600 MG DOSE PO SCH; -ROPIVACAINE 0.5% 5 MG/ML 30 ML VIAL ONE
--- NOTE | 2020-04-06 10:07 | History & Physical Bridge Note ---
Date of Service April 06, 2020 History & Physical Bridge Note I have examined the patient, reviewed the History & Physical and in the interval since the performance of the History & Physical I have noted the following changes of clinical significance: no changes noted
[2020-04-06] MEDS ORDERED: ePHEDrine sulfate 50 MG/ML AMP IV PRN (11:47)
[2020-04-06] MEDS ORDERED: ONDANSETRON INJ 2 MG/ML 2 ML VIAL IV PRN ×2 (11:47→16:30)
[2020-04-06] MEDS ORDERED: ATROPINE SULFATE 0.1 MG/ML 10ML SYR IV PRN (11:47)
[2020-04-06] MEDS ORDERED: fentaNYL citrate 100 MCG/2 ML VIAL IV PRN (11:47)
[2020-04-06] MEDS ORDERED: fentaNYL citrate 100 MCG/2 ML VIAL ONE (11:59)
[2020-04-06] MEDS ORDERED: MIDAZOLAM HCL 1 MG/ML 2ML VIAL ONE ×2 (11:59→13:14)
[2020-04-06] MEDS ORDERED: PROPOFOL IV EMULSION 10 MG/ML 20 ML VIAL IV ONE ×3 (12:07→14:27)
[2020-04-06] MEDS ORDERED: LIDOCAINE HCL 2% 2 ML VIAL/AMP(20MG/ML) INFIL ONE (12:07)
[2020-04-06] MEDS ORDERED: ORTHO JOINT ANESTHETIC ONE (12:31)
[2020-04-06] MEDS ORDERED: BACITRACIN INJ 50,000 UNIT VIAL ONE (12:32)
--- NOTE | 2020-04-06 14:32 | Post Operative Brief Note ---
Immediate Post Op Note v1 Date of Surgery April 06, 2020 Pre & Post Diagnosis Operation Date: 04/06/20 11:55 Pre-Op Diagnosis: Unilateral Primary Osteoarthritis, Right Knee Post-Op Diagnosis: Unilateral Primary Osteoarthritis, Right Knee I identified the patient and participated in the time-out.: Yes Procedure Operation Date: 04/06/20 11:55 Actual Procedures p Right Total Knee Arthroplasty(Right) - Jhon Fletcher DO Surgeon Jhon Fletcher DO Crew Leader Valeriy Cotton Estimated Blood Loss 55 Findings Consistent with Post-Op Diagnosis Fluids 1400 cc LR Specimens proximal tibia and distal femur bone fragments Anesthesia Type Spinal MAC Complications none Disposition Disposition: Recovery Room Overlapping Procedure I was present for: the critical portions of procedure. I was immediately available: during the entire case. Back up surgeon: was not required during procedure.
--- NOTE | 2020-04-06 14:47 | Operative Report ---
Post Operative Report Pre & Post Diagnosis Operation Date: 04/06/20 11:55 Pre-Op Diagnosis: Unilateral Primary Osteoarthritis, Right Knee Post-Op Diagnosis: Unilateral Primary Osteoarthritis, Right Knee I identified the patient and participated in the time-out.: Yes Procedure Operation Date: 04/06/20 11:55 Actual Procedures p Right Total Knee Arthroplasty(Right) - Jhon Fletcher DO Surgeon Jhon Fletcher DO Environmental Issues Instructor Valeriy Cotton Estimated Blood Loss 55 Findings Consistent with Post-Op Diagnosis Fluids 1400 cc LR Specimens proximal tibia and distal femur bone fragments Anesthesia Type Spinal MAC Complications none Disposition Disposition: Recovery Room Indications The patient is a 59-year-old male presents with long history of severe right knee tricompartmental DJD and failed outpatient conservative treatments including NSAIDs, bracing, injections and home walking/exercise program. The patient's symptoms have progressed to the point where it has been difficult to perform normal activities of daily living. I have indicated the patient for a right total knee arthroplasty, the risks and benefits and complications of the procedure include but are not limited to infection bleeding damage to bone, nerves, vessels, surrounding soft tissue, blood clots, loss of function, leg length discrepancy, dislocation, failure of the components, need for additional surgery and . The patient wished to proceed with surgery at this time and informed consent was obtained. Appropriate clearances were obtained. Description of Procedure COMPONENTS USED: Criselda persona knee system: Femur size 9, Tibia size F tibial articulating surface 10 CPS, Patella 31 mm Following induction of spinal anesthesia, a tourniquet was applied to the proximal aspect of the thigh and the patient's right leg was prepped and draped in the usual sterile manner. A timeout was performed, patient identified and site shirley confirmed. Appropriate pre-operative IV antibiotics were given. The limb was exsanguinated with an Esmarch bandage and tourniquet was inflated to 300 mmHg. A longitudinal midline incision was made over the anterior knee. Subcutaneous tissue was sharply dissected down to fascia. Electrocautery was used for hemostasis. Next a parapatellar arthrotomy was performed. Patella was everted and the knee was flexed. A Naranjo retractor was used to expose the synovium above on the anterior aspect of the femur and removed down to bone. Next, the anterior fat pad was removed to aid in visualization. The medial face of the tibia was cleared of soft tissue first with a Bovie and a perera elevator. This tissue was retracted posteriorly using a blunt Hohmann. Next, the extra-medullary tibial cutting guide was placed to the anterior aspect of the tibia. The tibia resection level was set taking 2mm from the defective tibial condyle. Resection depth was once again confirmed with hortensia wing. The medial and lateral collateral ligament was protected with two Hohmann retractors. The tibia guide was removed and proximal tibial bone fragment removed utilizing straight osteotome, electrocautery and Janie. Next, the distal femur intramedullary canal was accessed utilizing the step drill. The intramedullary distal femur cutting guide was placed into the canal and pinned into place. The distal femur was cut on the 5 degree setting. Next the cutting guide was removed and the femur was sized. Care was taken to ensure appropriate employment service specialist all rotation and 3 degree holes were drilled. A size 9 4-in-1 cutting block was placed on the distal end of the femur and secured into place with two short headed screws. Two bent Hohmann retractors were placed to protect the medial and lateral collateral ligaments. The oscillating saw was used to cut anterior, posterior, anterior chamfer and posterior chamfer. The four and one cutting block was removed and bone fragments excised. Laminar director clinical operations was placed laterally and the ACL and PCL were removed followed by the medial meniscus and posterior medial osteophytes. Aquamantys was utilized for any posterior medial bleeders and Orthomix injected into the posterior medial capsule. A laminar director clinical operations was then placed in the medial compartment and the lateral meniscus and posterior osteophytes were removed. Aquamantys was utilized for any posterior lateral bleeders and Orthomix injected into the posterior lateral capsule. Next, drop mary and spacer block were placed with the leg in flexion and extension to assess alignment and flexion/extension gaps. Next, the proximal tibia was assessed and two bent Hohmans were placed medial and lateral to aid in visualization. The appropriate tibia size and rotation was selected and a size F tibial plate was pinned into place with appropriate rotation. Preparation of the tibia was completed utilizing the matching tibial drill and broach. I then turned my attention back to the distal femur in a trial femoral component was impacted into place. Appropriate femoral width was assessed and selected. Next the femur PS box cut guide was placed and cut made with the reciprocal saw and the PS box provisional placed. A trial size 10 PS tibia articular tray was placed and varus-valgus balance assessed in 0 degrees of extension and 30, 60 and 90 degrees of flexion. A final tibial articular surface size 10 CPS was chosen. Assess was gained to the patella and caliper utilized to measure width. The patella reamer was utilized and remaining bone removed with oscillating saw. A size 31 mm patella button was selected and the patella pegs drilled. Trial patella button was placed and tracking was assessed. The knee was found to be well balanced, well aligned with excellent patella tracking. The trials were removed and final components were obtained and assembled. The knee was irrigated copiously with sterile saline solution mixed with bacitracin. Access to the proximal tibia was once again obtained utilizing to the Hohmans and the proximal tibia and distal femur were dried with lap sponges. The final components were cemented into place and all excess cement was removed. A trial tibial articular surface was placed while cemented hardened. Knee stability was once again assessed and the final component inserted. A Betadine soak was performed. After 3 minutes, the hip was once more irrigated with copious sterile saline solution with bacitracin. The knee was injected with the remaining Orthomix which includes a combination of Ropivicaine 0.5% 150mg, Bupivicaine 0.5%/Epinephrine 1:200,000 30ml, Toradol 30mg, Dexamethasone 4mg, Ketamine 10mg, Clonidine 100mcg and NSS 30ml solution. The capsulotomy was closed with #1 Vicryl followed by subcutaneous closure with 2-0 Vicryl suture and a 3-0 V-lock suture. Skin closure was performed using Prineo dressing followed by Telfa, 4 x 4s and sae wrap. Tourniquet was deflated at 93 minutes. The patient tolerated the procedure well and was taken to the PACU in stable condition. Due to the complex nature of the procedure, the entire surgery was performed with the operational assistance of Valeriy Cotton PA-C. The printer assistant, under direct supervision, was involved in the actual performance of all aspects of the surgical procedure including patient positioning, hemostasis, tissue retract ion, instrument management and wound closure. I attest to the content of the Intraoperative Record and any orders documented therein. Any exceptions are noted below.
--- NOTE | 2020-04-06 15:27 | XRay Report ---
XR knee RT 1 or 2V routine HISTORY: 59 years-old Male Surgical Post Op right knee total joint arthroplasty COMPARISON: None TECHNIQUE: 2 views the right knee FINDINGS: Right knee total joint arthroplasty and patella resurfacing. Satisfactory alignment without acute fra cture or retained foreign body. Surgical drainage catheter is noted along with expected soft tissue s welling and deep tissue air. IMPRESSION: Right knee total joint arthroplasty with expected postoperative findings. ACT 112: Negative or not required by law. The above report was generated using voice recognition software. It may contain grammatical, syntax o r spelling errors. Electronically signed by: Gianluca Young M.D. 04/06/2020 3:25 PM
--- NOTE | 2020-04-06 15:50 | Anesthesiology Progress Note ---
Date of Service April 06, 2020 Anesthesia Post Procedure Vital Signs Vital Signs: Temp Pulse Pulse Resp BP BP Pulse Ox 04/06/20 15:40 36.4 C L 59 L 14 126/78 95 04/06/20 15:30 70 18 124/80 93 04/06/20 15:20 68 18 137/76 95 04/06/20 15:11 36.2 C L 74 15 135/78 95 04/06/20 10:51 56 L 18 118/76 97 04/06/20 09:46 36.7 C 66 20 142/80 H 97 Transfer of Care Handoff Completed per policy Notes Mental Status: alert / awake / arousable and participated in evaluation Nausea / Vomiting: adequately controlled Pain: adequately controlled Airway Patency, RR, SpO2: stable & adequate BP & HR: stable & adequate Hydration State: stable & adequate Neuraxial Anesthesia: was administered and sensory block is resolving Anesthetic Complications: no major complications apparent and Pt Satisfied with anesthetic care
[2020-04-06] MEDS ORDERED: bisacodyL 10 MG SUPP PR PRN (16:30)
[2020-04-06] MEDS ORDERED: HYDROmorphone INJ 0.5 MG/0.5 ML SYR IV PRN (16:30)
[2020-04-06] MEDS ORDERED: NALOXONE HCL 0.4 MG/1 ML VIAL/CARP IV PRN (16:30)
[2020-04-06] MEDS ORDERED: MAGNESIUM HYDROXIDE SUSP 30 ML UDC PO PRN (16:30)
[2020-04-06] MEDS ORDERED: METOCLOPRAMIDE HCL INJ 5 MG/ML 2 ML VIAL IV PRN (16:30)
[2020-04-06] MEDS ORDERED: FAMOTIDINE 20 MG TAB PO PRN (16:30)
[2020-04-06] MEDS ORDERED: SODIUM CHLORIDE 0.9% 1000ML 1,000 ML IV SCH (16:45)
[2020-04-06] MEDS: KETOROLAC TROMETHAMINE 15 MG/ML VIAL IV SCH ×2 (16:54→22:25)
--- NOTE | 2020-04-06 19:54 | Orthopedic Progress Note ---
Date of Service April 06, 2020 Assessment & Plan (1) Degenerative joint disease of knee, right: s/p R TKA -Ancef x 24 -DVT ppx: SCDs, TEDs, 81mg ASA BID -WBAT RLE -PT/OT -PO XR demonstrates a well aligned well fixed total hip prothesis without fracture/dislocation -am labs -DC planning Admission and Anticipated Discharge Date Admission Date: April 06, 2020 Subjective Post Operative Progress Note Patient seen sitting up in bed eating dinner, comfortable, denies complaints, pain well controlled, no acute issues. Review of Systems Review of Systems: All systems reviewed & are unremarkable except as noted in HPI & below Constitutional: as per Subjective / HPI Physical Exam Physical Exam: RLE NVSI +EHL/FHL/TA/GS SILT grossly, +2 DP pulse, compartments soft NT, dressing cdi. Constitutional: WD/WN, vitals as above Results & Data ([place]) Vital Signs (Past 12 Hours) Vital Signs Temp Pulse Pulse Pulse Resp BP BP 04/06/20 19:22 36.8 C 79 17 146/79 H 04/06/20 18:09 36.4 C L 74 16 153/81 H 04/06/20 17:07 36.4 C L 71 17 154/87 H 04/06/20 16:30 36.8 C 68 17 144/83 H 04/06/20 16:00 36.3 C L 68 18 145/84 H 04/06/20 15:40 36.4 C L 59 L 14 126/78 04/06/20 15:30 70 18 124/80 04/06/20 15:20 68 18 137/76 04/06/20 15:11 36.2 C L 74 15 135/78 04/06/20 10:51 56 L 18 118/76 04/06/20 09:46 36.7 C 66 20 142/80 H Pulse Ox 04/06/20 19:22 97 04/06/20 18:09 96 04/06/20 17:07 95 04/06/20 16:30 94 04/06/20 16:00 95 04/06/20 15:40 95 04/06/20 15:30 93 04/06/20 15:20 95 04/06/20 15:11 95 04/06/20 10:51 97 04/06/20 09:46 97
[2020-04-06] MEDS: OXYCODONE HCL IR 5 MG TAB (IMMEDIATE RELEASE) PO PRN (20:02)
[2020-04-06] MEDS: carvediloL 12.5 MG TAB PO SCH (20:05)
[2020-04-06] MEDS: DOCUSATE SODIUM 100 MG CAP PO SCH (20:05)
[2020-04-06] MEDS: CEFAZOLIN 2000MG 2,000 MG/15 ML SYR IV SCH (20:10)
[2020-04-06] MEDS ORDERED: SENNA 8.6 MG TAB PO SCH (21:00)
[2020-04-06] MEDS ORDERED: ATORVASTATIN 10 MG TAB PO SCH (21:00)
[2020-04-06] MEDS ORDERED: ALFUZOSIN HCL 10 MG TAB PO SCH (21:00)
[2020-04-06] MEDS ORDERED: TOPIRAMATE 100 MG TAB PO SCH (21:00)
[2020-04-06] MEDS: ACETAMINOPHEN 500 MG TAB PO SCH (22:25)
[2020-04-07] MEDS: OXYCODONE HCL IR 5 MG TAB (IMMEDIATE RELEASE) PO PRN ×4 (00:18→13:49)
[2020-04-07] MEDS: ACETAMINOPHEN 500 MG TAB PO SCH (05:13)
[2020-04-07] MEDS: CEFAZOLIN 2000MG 2,000 MG/15 ML SYR IV SCH (05:14)
[2020-04-07] MEDS: KETOROLAC TROMETHAMINE 15 MG/ML VIAL IV SCH ×2 (05:14→11:10)
[2020-04-07 06:02] LABS: Hematocrit (blood only) 35.8 % (42-52); Mean Corpuscular Hemoglobin 32.1 pg (25-34); Mean Corpuscular Hgb Conc 33.5 g/dL (32-36); Mean Corpuscular Volume 95.7 fL (80-100); Mean Platelet Volume 8.3 fL (7.4-10.4); Platelet Count 162 K/uL (130-400); RDW Coefficient of Variation 13.6 % (11.5-14.5); Red Blood Count 3.74 M/uL (4.7-6.1); White Blood Count 10.78 K/uL (4.8-10.8)
[2020-04-07 06:32] LABS: Calcium 8.1 mg/dl (8.5-10.1); Creatinine Clr Calc Pharmacy 91.7 ml/min; Est GFR (African American) 89.6; Est GFR (Non-African American) 77.3; Potassium 4.1 mmol/L (3.5-5.1)
[2020-04-07] MEDS: carvediloL 12.5 MG TAB PO SCH (08:30)
[2020-04-07] MEDS: DOCUSATE SODIUM 100 MG CAP PO SCH (08:30)
[2020-04-07] MEDS ORDERED: MULTIVITAMIN TAB PO SCH (09:00)
[2020-04-07] MEDS ORDERED: allopurinoL 300 MG TAB PO SCH (09:00)
[2020-04-07] MEDS ORDERED: ASPIRIN 81 MG ECTAB PO SCH (09:00)
[2020-04-07] MEDS ORDERED: predniSONE 10 MG TABLET PO SCH (09:00)
--- NOTE | 2020-04-07 09:40 | Orthopedic Progress Note ---
Date of Service April 07, 2020 Assessment & Plan (1) Degenerative joint disease of knee, right: s/p R TKA POD#1 -Ancef x 24 -DVT ppx: SCDs, TEDs, 81mg ASA BID -WBAT RLE -PT/OT -PO XR demonstrates a well aligned well fixed total hip prothesis without fracture/dislocation -am labs - as above, hgb 12.0 -DC planning - home with Admission and Anticipated Discharge Date Admission Date: April 06, 2020 Subjective Post Operative Progress Note Patient seen sitting in bed, comfortable, denies complaints, pain well controlled, no acute issues. Denies F/C/N/V/SOB/CP. Review of Systems Review of Systems: All systems reviewed & are unremarkable except as noted in HPI & below Constitutional: as per Subjective / HPI Physical Exam Physical Exam: RLE NVSI +EHL/FHL/TA/GS SILT grossly, +2 DP pulse, compartments soft NT, dressing cdi. Constitutional: WD/WN, vitals as above Results & Data ([facility]) Vital Signs (Past 12 Hours) Vital Signs Temp Pulse Resp BP Pulse Ox 04/07/20 07:08 36.5 C 63 20 124/67 96 04/07/20 03:55 36.5 C 64 19 114/66 96 04/06/20 23:32 36.6 C 70 18 122/68 97 Laboratory Results 04/07/20 04/07/20 Range/Units 05:22 05:22 WBC 10.78 (4.8-10.8) K/uL RBC 3.74 L (4.7-6.1) M/uL Hgb 12.0 L (14.0-18.0) g/dL Hct 35.8 L (42-52) % MCV 95.7 (80-100) fL MCH 32.1 (25-34) pg MCHC 33.5 (32-36) g/dL RDW Std Deviation 47.0 H (36.4-46.3) fL RDW Coeff of Jacob 13.6 (11.5-14.5) % Plt Count 162 (130-400) K/uL MPV 8.3 (7.4-10.4) fL Sodium 137 (136-145) mmol/L Potassium 4.1 (3.5-5.1) mmol/L Chloride 105 (98-107) mmol/L Carbon Dioxide 23 (21-32) mmol/L Anion Gap 9.0 (3-11) BUN 25 H (7-18) mg/dl Creatinine 1.05 (0.6-1.4) mg/dl Est Cr Clr Drug Dosing 91.7 ml/min Est GFR ( Amer) 89.6 Est GFR (Non-Af Amer) 77.3 BUN/Creatinine Ratio 24.0 H (10-20) Glucose 113 H (70-99) mg/dl Calcium 8.1 L (8.5-10.1) mg/dl
--- NOTE | 2020-04-07 15:45 | Discharge Summary ---
Date of Service April 07, 2020 Admission HPI Per Admitting Provider The patient is a 59 year old male who presents with complaints of severe left knee pain and DJD. The patient has failed outpatient conservative treatments to this point which included NSAIDs, IA corticosteroid injections, PT and a home exercise/walking program. The patient's pain and limited function have progressed to the point where they severely hinder their activities of daily living and they no longer tolerate exercise programs. They are requesting to proceed with total knee replacement surgery. Principal Diagnosis Right total knee replacement -Right knee DJD Discharge Exam RLE NVSI +EHL/FHL/TA/GS SILT grossly, +2 DP pulse, compartments soft NT, dressing cdi. Constitutional WD/WN, vitals as above Discharge Data Allergies Allergy/AdvReac Type Severity Reaction Status Date / Time Quinolones AdvReac Intermediate MUSCLE Verified 04/06/20 09:10 WEAKNESS/PAIN shellfish derived AdvReac Intermediate N/V Verified 04/06/20 09:10 Sulfa (Sulfonamide AdvReac Intermediate MUSCLE Verified 04/06/20 09:10 Antibiotics) PAIN/WEAKNESS Consultations 04/06/20 16:30 Consult Case Management - Discharge Planning Routine Procedures Performed Operation Date: 04/06/20 11:55 Actual Procedures p Right Total Knee Arthroplasty(Right) - Jhon Fletcher DO Ordered Studies 04/06/20 05:00 US - OR guided needle placemen Routine Hospital Course (1) Degenerative joint disease of knee, right: The patient is a 59 -year-old male who presents with long standing history of severe right knee DJD and failed outpatient conservative treatments. The patient's symptoms have progressed to the point where it has been difficult to perform even normal activities of daily living. I indicated the patient for a right total knee arthroplasty, the risks, benefits and complications of the procedure include but not limited to infection, bleeding, damage to bone, nerves, vessels, surrounding soft tissue, may develop blood clots, loss of function, leg length discrepancy, dislocation, failure of the components, loosening of the components, the need for additional surgery and . The patient wished to proceed with surgery at this time and informed consent was obtained. Hospital Course: On 04/06/20 the patient was taken to the operating room, adequate anesthesia administered and underwent a right total knee arthroplasty. The patient tolerated the procedure well and was taken to the PACU in stable condition. Post-operatively the patient was started on a DVT ppx medication and given appropriate IV antibiotics. Consults were placed to physical therapy, occupational therapy and case management. On POD#1, the patient did well overnight and their pain was well controlled. Labs were drawn and the Hgb was 12.0. The patient progressed well with PT. Dressings were changed at this time and the incision was clean, dry and intact. On POD#2, The patients hospital stay was relatively uneventful and they were deemed stable by the orthopedic team and consultants to be discharged home with HH on 04/07/20. Discharge Instructions: Upon discharge the patient may weight bear as tolerates through their operative extremity. They were instructed to keep the incision clean and dry at all times. The patient may shower but should not submerge the incision, avoid bathing, pools and hot tubes. The patient was given a script for pain medication and should take as instructed. The patient was given a script for DVT ppx 81mg ASA BID and should take as directed. The patient was instructed to not drive or travel for long distances until cleared to do so. If the patient develops any symptoms of fevers, chills, nausea, vomiting, increased redness, swelling, pain or drainage from the surgical site, they should notify the office and/or proceed to the nearest emergency room. The patient should follow up in 10-14 days after surgery for their routine post-operative follow-up appointment and should call the office to confirm the date and time. s/p R TKA POD#1 -Ancef x 24 -DVT ppx: SCDs, TEDs, 81mg ASA BID -WBAT RLE -PT/OT -PO XR demonstrates a well aligned well fixed total hip prothesis without fracture/dislocation -am labs - as above, hgb 12.0 -DC planning - home with Total Time Total Time Spent Total Time Spent (In Minutes): 30 Discharge Plan Discharge Items Patient Disposition: Home - Home Health Services Reason For Visit: Unilateral Primary Osteoarthritis, Right Knee Discharge Diagnosis: Right total knee replacement Condition on Discharge: Good Activity: Per Instructions section Lifting: Wait until after follow-up appointment Bathing: Keep incision dry Bathing Comment: No bathing, pools or hot tubs Sexual Activity: Wait until after follow-up appointment Exercise/Sports: Wait until after follow-up appointment Driving/Machine Use: No driving Weightbearing: Full weightbearing Non-emergency contact: Primary Care Provider and Surgeon Call non-emergency contact if: you have any medication questions, your symptoms worsen, your pain is not controlled, your pain is worsening, your pain is unusual for you, your pain is concerning for you, you have a fever, your temperature is above 101, your wound has increased redness, your wound has increased drainage and your wound pain has increased Follow-up/Referrals: Yogesh Parrish [Primary Care Provider] - Diet: Regular Addtl Attending Provider Instructions: ACTIVITY RECOMMENDATIONS: SELF CARE INSTRUCTIONS AFTER TOTAL KNEE REPLACEMENT A. You may need to continue a physical therapy program after discharge from the hospital. There are several options available to you. Your doctor will assist you in selecting the best one for you. 1. An out-patient facility 2 to 3 times a week for therapy or home therapy. 2. Continue working on all exercises taught to you in the hospital. Your goals should be to increase bending of your knee to 90 degrees and beyond and to fully straighten your knee. B. You may progress at your own pace from walking with a walker or crutches to a cane; then to no assistive devices. C. Make walking a part of your daily routine. Be up as much as comfortable with rest periods throughout the day. Rest with leg elevation is very important. Use the ice wrap frequently for the first 3-4 weeks. D. There are no restrictions on activities. You may ride in a car, shop, participate in rn licensed practical and all social activities. E. Wear the long elastic stockings (DAVID hose) 20 hours a day for 2 weeks after surgery. They can be removed several times a day for laundering and for a bath. F. You may shower, no tub baths until cleared by your doctor. SPECIAL CARE INSTRUCTIONS: VERY IMPORTANT TO READ AND REVIEW A. There are a few signs you need to watch for after you are home. Call [facility] if you notice any of the followin. Increased severe knee pain. Some pain is expected especially when you exercise. 2. Increased swelling in your leg or knee; pain or swelling of the calf muscle in either lower leg. 3. Any fluid drainage from the incision. 4. Shortness of breath or chest pain. B. Please call [facility] at if you have any concerns or questions about your operation or recovery. The doctor or his nurse will return your call promptly. C. You must take antibiotics before dental work, bladder, bowel or other surgery. Your doctor will provide you with a permanent care to carry describing this precaution. IMPORTANT: * REMEMBER TO TAKE ASPIRIN, 81 MG, TWICE DAILY FOR 4 WEEKS UNLESS OTHERWISE DIRECTED. THIS IS YOUR BLOOD THINNER. * HIGH RISK PATIENTS MAY BE PRESCRIBED A STRONGER BLOOD THINNER. THIS WILL BE PROVIDED AT DISCHARGE. * CALL IF INCREASED PAIN, REDNESS, DRAINAGE OR FEVER GREATER THAT 101. * WEAR DAVID HOSE 20 HOURS PER DAY FOR 2 WEEKS. *DERMABOND Prineo- This is a mesh tape dressing that is covered with glue. It should remain in place until the incision is properly healed, usually 10-14 days. This dressing is designed to naturally slough off. You may trim the excess mesh tape as it peels off. Incision may be briefly wet in a shower. Dry immediately by blotting with a clean, dry towel. Do not bath or swim until instructed by your doctor. Do not scratch, rub, or pick at the dressing. Do not apply any topical ointments or lotions until dressing is completely removed and/or instructed by your doctor. There may be a small piece of suture material at one end of your incision. Do not pull or trim this. If it is bothersome or catching on clothing, you may cover it with a band-aid. FOLLOW UP VISIT: If appointment is not already scheduled: Please call [facility] to make a follow-up appointment for 2 weeks after your surgery at . Pending Studies at Discharge: No Stand-Alone Forms: [facility] ([employer]), Smoking Cessation Medications and DC Order Prescriptions: New aspirin 81 mg Tablet,Delayed Release (Dr/Ec) 81 mg PO BID Qty: 56 RF: 0 acetaminophen 500 mg Tablet 1,000 mg PO Q8 PRN (Reason: pain/fevers) Qty: 90 RF: 0 oxycodone 5 mg Tablet 5 mg PO Q6H MDD 4 PRN (Reason: pain) Qty: 30 RF: 0 sennosides [Senokot] 8.6 mg Tablet 17.2 mg PO HS PRN (Reason: constipation) Qty: 28 RF: 0 Continued carvedilol 25 mg Tablet 12.5 mg PO BID RF: 0 atorvastatin 10 mg Tablet 10 mg PO PM RF: 0 phendimetrazine tartrate 35 mg Tablet 35 mg PO BIDM RF: 0 famotidine 20 mg Tablet 20 mg PO HS PRN (Reason: Heartburn) RF: 0 allopurinol 300 mg Tablet 150 mg PO QAM RF: 0 alfuzosin 10 mg Tablet Extended Release 24 Hr 10 mg PO QPM RF: 0 topiramate 50 mg Tablet 100 mg PO HS RF: 0 [id number] [krill oil] [id number] mg Capsule 1 cap PO QAM RF: 0 prednisone 5 mg Tablet 25 mg PO UD RF: 0 folic acid 1 mg Tablet 1 mg PO QPM RF: 0 meloxicam 15 mg Tablet 15 mg PO QAM RF: 0 Discontinued methotrexate sodium 2.5 mg Tablet 2.5 mg PO UD RF: 0 Discharge Orders: Discharge Order (Routine); Ordered 04/07/20 Ordered By: Ford Faith Admission Data Admit Date/Time: 04/06/20 15:12 Attending Provider: Jhon Fletcher Admit Provider: Jhon Fletcher Primary Care Provider: Yogesh Parrish Other Interventions: Discharge Summary Assessment (RN) Last Done: 04/07/20 12:19 DC Date/Time DO NOT enter until pt leaves facility: 04/07/20 14:08
== END 2020-04-07 14:08 | disposition home health service (06) | DRG 470 ==
LOC: ASU 08:32 → 3N 15:12